=== PATIENT | female | born 1990 | race Caucasian/White ===

== ENCOUNTER 2023-11-04 00:05 | Inpatient (IN) | payer OTHER ==
--- NOTE | 2023-11-03 23:45 | NUR ---
PT BROUGHT TO L&D VIA EMS FROM HOME. C/O BRIGHT RED BLEEDING AT HOME. SMALL AMOUNT BLOOD NOTED ON PAD. IT WAS WEIGHED WITH 26 GM OF BLOOD NOTED ON IT. PT ASSISTED OVER TO BED, MONITORS PLACED ON ABD. FHR 125, MODERATE VARIBILITY, WITH ACCELS. DENIES LEAKING FLUID OR PAIN, DENIES CTX'S. STARTED BLEEDING AT 2315. EMS STATES APPOX 200-300 ML BLOOD LOSS AT PT'S HOME. PT BEING SEEM BY MFM AND DELIVERY TO TAKE PLACE AT [facility], DUE TO PLACENTA PREVIA WITH POSSIBLE INCREATA. 32.5 WKS, WITH PREVIOUS C/S FOR TWIN DELILVERY AT 37 WEEKS. PT DENIES ANY OTHER COMPLICATIONS.
[2023-11-04] VITALS (12 sets, daily range): BP systolic 93–132; BP diastolic 55–75; PULSE 80–103; TEMP 98–98.6
[~2023-11-04] VITALS: Ht 157.5 cm; Wt 68.6 kg
[2023-11-04] MEDS ORDERED: LR 1,000 ML IV PRN (00:15)
[2023-11-04] MEDS ORDERED: Betamethasone Acetate/Na Phos 6 MG/ML 5 ML MDV IM ONE (00:30)
[2023-11-04 00:43] LABS: BASO % 0.3 % (0.0-2.0); EOS # 0.2 K/mm3 (0.0-0.7); EOS % 1.6 % (0.0-4.0); GRAN # 6.8 K/mm3 (1.4-6.5); HEMOGLOBIN 12.2 g/dl (12.5-16.0); LYMPH # 1.9 K/mm3 (1.2-3.4); LYMPH % 20.1 % (20.0-51.0); MEAN CELL VOLUME 94 fl (80.0-100.0); MEAN CORPUSCULAR HEMOGLOBIN 33 pg (27-31); MEAN CORPUSCULAR HGB CONC 35 g/dl (33.0-37.0); MEAN PLATELET VOLUME 9.1 fl (7.4-10.4); MONO # 0.6 K/mm3 (0.1-0.6); MONO % 6.1 % (1.7-9.3); PLATELET COUNT 203 K/mm3 (130-400); RED BLOOD COUNT 3.69 M/mm3 (4.10-5.30); REDCELL DISTRIBUTION WIDTH-CV 13.2 % (11.5-14.5)
[2023-11-04 00:46] LABS: HEMATOCRIT 34.8 % (37.0-47.0)
--- NOTE | 2023-11-04 06:00 | NUR ---
PERIPAD CHANGED WITH 5 ML OF LIGHT BLOOD NOTED. PT DENIES FEELING ANY UC'S OR CRAMPS. PT IS TRYING TO SLEEP.
--- NOTE | 2023-11-04 07:22 | NUR ---
0700 RN BEDSIDE TO ASSESS PATIENT. PT RESTING COMFORTABLY IN BED, DENIES FEELING ANY CONTRACTIONS. RN ASSESSES BLEEDING, SMALL AMOUNT OF BRIGHT RED BLOOD NOTED ON PAD. HEIN IN AND DRAINING CLEAR YELLOW URINE. POC DISCUSSED WITH PT AND PT VERBALIZES UNDERSTANDING AND HAS NO QUESTIONS
--- NOTE | 2023-11-04 07:54 | NUR ---
4437 Verbal orders from Curly CHAVEZ for pt to eat, RN able to remove mcelroy after lunch , pt able to go to [facility], pt able to move to in afternoon if bleeding remains stable and wait for 2nd beta tonight. RENITA RBVO.
--- NOTE | 2023-11-04 08:24 | NUR ---
0820 MARIA LUISA CHAVEZ UPDATED ON FHTS AND CTX PATTERN, INCLUDING CTX Q 2-4 MINUTES CONSISTENTLY BUT PATIENT NOT FEELING THEM. STILL OKAY WITH PT COMING OFF CONTINUOUS MONITORING AND MOVING TO TID MONITORING. RN RBVO.
--- NOTE | 2023-11-04 16:29 | NUR ---
1000 RN NOTES SCANT DARK RED BLOOD ON PAD, SIZE OF A QUARTER 1300 RN NOTES SMALL AMOUNT OF DARK RED BLOOD ON PAD, SIZE OF A STRAWBERRY 1600 PT REPORT SCANT AMOUNT OF DARK RED BLOOD WHEN WIPING AFTER GOING TO THE BATHROOM
--- NOTE | 2023-11-04 20:49 | NUR ---
2048- EFM X2 APPLIED. PT DENIES LEAKING FLUID. STATES SHE HAS SOME DARK BLOOD WHEN SHE WIPES, BUT ALMOST NONE ON HER PAD. STATES THE BABY IS MOVING VERY ACTIVELY AT THIS TIME. STATES SHE DOESN'T FEEL CRAMPY NOW THAT HER CATHETER IS OUT, BUT DOES NOTICE SOME TIGHTENING WHEN THE BABY IS MOVING. PLAN OF CARE FOR MONITORING DISCUSSED AND PT DENIES FURTHER NEEDS AT THIS TIME. 2114- EFM OFF. PT REPORTS BABY HAS THE HICCUPS. SOME CRAMPING AND CONTRACTIONS NOTICED ON TOCO IN FIRST 10 MINUTES OF TRACING. PT STATES SHE ONLY FELT TIGHTENING WITH THEM, NO PAIN OR PRESSURE. REST OF TOCO TRACING IRRITABLE WITH ONE CONTRACTION LASTING 90 SECONDS.
--- NOTE | 2023-11-04 22:03 | NUR ---
2200- PT CALLS OUT AFTER PASSING CLOT ON TOILET. NURSE TO ROOM AND LARGE CLOT NOTED IN TOILET. CLOT RETRIEVED AND WEIGHS 51GMS. PT INFORMED TO KEEP BLADDER EMPTY AND TO NOTIFY NURSE IF ANY FURTHER BLEEDING OR CLOTS. PAD WITH THIS TOILETING HAS JUST A SMEAR OF BLOOD.
[2023-11-05] MEDS ORDERED: Betamethasone Acetate/Na Phos 6 MG/ML 5 ML MDV IM ONE (00:30)
[2023-11-05 00:36] VITALS: BP 115/55; PULSE 109; TEMP 97.9
[2023-11-05 03:00] VITALS: BP 113/66; PULSE 105; TEMP 97.8
--- NOTE | 2023-11-05 03:00 | NUR ---
0300- PT REPORTS SHE GOT UP TO BATHROOM, WAS ABLE TO VOID WITHOUT DIFFICULTY. PT NOTED ONLY PINKISH DISCHARGE ON TOILET PAPER WHEN SHE WIPED. STATES SHE ALSO HAD ONLY PINK SPOTS ON HER PAD AND DID NOT CHANGE IT.
[2023-11-05 07:57] LABS: HEMOGLOBIN 10.9 g/dl (12.5-16.0)
[2023-11-05 08:01] LABS: HEMATOCRIT 31.2 % (37.0-47.0)
[2023-11-05 08:20] VITALS: BP 126/78; PULSE 76; TEMP 98.5
--- NOTE | 2023-11-05 08:29 | NUR ---
0800 DR GLASS AT BEDSIDE FOR ASSESSMENT. ORDERS TO DC HEPLOCK AND MAY DISMISS TO HOME. ALL DISCGHARGE [id number] GIVEN TO PATIETN WITH VERBAL UNDERSTANDING .
== END 2023-11-05 09:00 | disposition home or self-care (01) | DRG 833 ==
LOC: LDRO 00:05 → LDR 00:19 → LDRO 15:55 → OB 15:56
PROVIDERS: Obstetrics & Gynecology; ADMIT Obstetrics & Gynecology
DX: O44.03 Complete placenta previa NOS or without hemorrhage, third trimester (principal); Z3A.33 33 weeks gestation of pregnancy
CPT/HCPCS: J0702; J7120

== ENCOUNTER 2023-11-08 03:54 | Inpatient (IN) | payer OTHER ==
[~2023-11-08] VITALS: Ht 157.5 cm; Wt 70.5 kg
--- NOTE | 2023-11-08 04:00 | NUR ---
G2L2 at 33 weeks and 3 days arrives to unit with complaint of vaginal bleeding. Pt has a known complete previa and percreta and has plans to deliver by c/s at [facility]. Pt states she had large amount of bleeding in toilet at home and has soaked a pad on the drive to hospital. Pt to bathroom with this RN. Steady stream of blood/urine and few medium sized clots passed into toilet. Dr. Coburn notified to come to hospital. Pt to bed with towel between legs to evaluate bleeding. US and toco explained and applied. Vitals obtained. Admission assessment started.
[2023-11-08 04:15] VITALS: BP 123/73; PULSE 96; TEMP 97.8
[2023-11-08] MEDS ORDERED: LR 1,000 ML IV SCH (04:15)
[2023-11-08 04:30] VITALS: BP 109/64; PULSE 94
--- NOTE | 2023-11-08 04:30 | NUR ---
HEIN INSERTED AT THIS TIME PER VERBAL ORDER FROM DR CASTREJON. MINIMAL BLEEDING NOTED, SOME SMALL TRICKLES OBSERVED DURING THE PLACEMENT OF HEIN. PT TOLERATED PLACEMENT WELL AND CLEAN YANG-PAD PLACED.
[2023-11-08 04:32] LABS: HEMOGLOBIN 11.8 g/dl (12.5-16.0); MEAN CELL VOLUME 95 fl (80.0-100.0); MEAN CORPUSCULAR HEMOGLOBIN 33 pg (27-31); MEAN CORPUSCULAR HGB CONC 35 g/dl (33.0-37.0); MEAN PLATELET VOLUME 9.2 fl (7.4-10.4); PLATELET COUNT 214 K/mm3 (130-400); RED BLOOD COUNT 3.56 M/mm3 (4.10-5.30); REDCELL DISTRIBUTION WIDTH-CV 13.5 % (11.5-14.5)
[2023-11-08 04:35] LABS: HEMATOCRIT 33.8 % (37.0-47.0)
[2023-11-08 04:45] VITALS: BP 122/73; PULSE 104
[2023-11-08 05:15] VITALS: BP 111/70; PULSE 100
[2023-11-08 05:24] LABS: BAND 6 % (0-10); LYMPHOCYTE 16 % (20.0-51.0); METAMYELOCYTE 1 % (0-0); NEUTROPHILS 72 % (42.0-75.2); PLATELET ESTIMATE NORMAL (NORMAL)
--- NOTE | 2023-11-08 05:30 | NUR ---
0520: [employer] [facility] [employer] HERE FOR PT AT THIS TIME. REPORT GIVEN TO SUPPLIER MANAGER AND PAPER WORK WELL. 0525: PT TRANSFERRED TO COT BY THIS RN AND PARAMEDICS. 0530: PT TRANSPORTED OFF UNIT AT THIS TIME BY [employer] [facility].
== END 2023-11-08 05:30 | disposition short-term general hospital (02) | DRG 833 ==
LOC: LDRO 03:54 → LDR 04:00
PROVIDERS: ADMIT Obstetrics & Gynecology
DX: O44.03 Complete placenta previa NOS or without hemorrhage, third trimester (principal); Z3A.33 33 weeks gestation of pregnancy; Z23 Encounter for immunization; O43.233 Placenta percreta, third trimester
CPT/HCPCS: J7120